=== PATIENT | female | born 1955 | race Caucasian/White ===

== ENCOUNTER 2021-03-07 11:11 | Inpatient (IN) | payer OTHER ==
[~2021-03-07] VITALS: Ht 152.4 cm; Wt 52.8 kg
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
[2021-03-07 11:20] VITALS: BP 115/81
[2021-03-07 11:53] LABS: ABSOLUTE NEUTROPHILS 2.6 thou/uL (1.4-8.2); BASOPHILS 0.7 % (0.0-2.0); EOSINOPHILS 1.6 % (0.0-3.0); HEMATOCRIT 41.2 % (37.0-47.0); HEMOGLOBIN 13.6 gm/dL (12.0-15.0); LYMPHOCYTES 42.1 % (24.0-44.0); MCH 29.2 pg (26.0-34.0); MCV 88.3 fL (80.0-100.0); MONOCYTES 10.6 % (1.0-8.0); PLATELET COUNT 377 thou/uL (150-400); RBC 4.66 mil/uL (4.20-5.00); WBC 5.8 thou/uL (4.0-11.0)
[2021-03-07 11:55] LABS: ANION GAP 10 mmol/L (7-16); BUN 18 mg/dL (7-18); CALCIUM 8.9 mg/dL (8.5-10.1); CHLORIDE 104 mmol/L (98-107); CO2 23 mmol/L (21-32); CREATININE 0.9 mg/dL (0.6-1.0); GLUCOSE 114 mg/dL (74-106); POTASSIUM 4.3 mmol/L (3.5-5.1); SODIUM 137 mmol/L (136-145)
[2021-03-07 12:06] LABS: ALBUMIN 3.8 g/dL (3.4-5.0); SGOT 26 U/L (15-37); SGPT 20 U/L (14-59); TOTAL BILIRUBIN 0.3 mg/dL (0.2-1.0); TOTAL PROTEIN 7.3 g/dL (6.4-8.2)
--- NOTE | 2021-03-07 13:36 | EKG ---
[address] [place] [address] ELECTROCARDIOGRAM REPORT Name: SHASHI IBARRA Room #: REG [facility]#: [id number] Admission: 03/07/21 Attend Phys: Discharge: Date of : 55 Report #: [id number] [facility] ED Test Date: 2021-03-07 Test Time: 11:23:59 Pat Name: SHASHI IBARRA Department: Room: Gender: F Aerospace Project Engineer: DIAN : 1955 Requested By: Emiliano Haider Order Number: [id number] MD: Faheem Maldonado Measurements Intervals [place] Rate: 81 P: 83 TN: 116 QRS: -3 QRSD: 92 T: 60 QT: 483 QTc: 561 Interpretive Statements Sinus rhythm Borderline short TN interval Artifact in lead(s) I,II,III,aVR,aVL,aVF Compared to ECG 08/26/1995 20:11:00 Sinus tachycardia no longer present T-wave abnormality no longer present Electronically Signed On 03-07-2021 13:36:08 CDT by Faheem Maldonado [email or web address] <ELECTRONICALLY SIGNED> By: Faheem Maldonado MD, [facility] 03/07/21 1336 [id number] Faheem Maldonado MD, [facility] /EPI
[2021-03-07 18:11] LABS: URINE BILIRUBIN NEGATIVE (Negative); URINE BLOOD NEGATIVE (Negative); URINE CLARITY CLEAR; URINE COLOR YELLOW; URINE GLUCOSE-RANDOM* NEGATIVE (Negative); URINE KETONES NEGATIVE (Negative); URINE LEUKOCYTES-REFLEX NEGATIVE (Negative); URINE NITRITE-REFLEX NEGATIVE (Negative); URINE PROTEIN (DIPSTICK) NEGATIVE (Negative); URINE SPECIFIC GRAVITY <= 1.005 (1.005-1.035); URINE UROBILINOGEN 0.2 E.U./dl (0.2-1.0)
[2021-03-07 18:20] VITALS: BP 127/66
[2021-03-07 18:40] VITALS: BP 124/78
[2021-03-07 19:29] LABS: APTT 26.2 Seconds (24.5-32.8); INR 0.91
[2021-03-07] MEDS ORDERED: NOHOMEMEDICATIONS (21:37)
--- NOTE | 2021-03-07 21:45 | NUR ---
PATIENT IS A NEW ADMISSION TO THE UNIT THIS SHIFT. SHE WAS IN HER BED WHEN SHIFT STARTED AND THIS NURSE IS FINISHING THE ADMISSION PROCESS. PATIENT IS ALERT AND ORIENTED AND ABLE TO PARTICIPATE FULLY IN ADMISSION. VITAL SIGNS STABLE WITH PATIENTS CHIEF COMPLAINT BEING NAUSEA AND PAIN IN HEADACHE AND LEFT LOWER LEG. NURSE TO COMPLETE ADMISSION AND INITIATE PLAN OF CARE.
[2021-03-07 23:39] VITALS: BP 110/64
[2021-03-08 04:19] VITALS: BP 105/57
[2021-03-08 07:40] VITALS: BP 110/67
[2021-03-08 11:45] VITALS: BP 113/67
[2021-03-08 15:25] VITALS: BP 108/62
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
[2021-03-08 15:53] VITALS: BP 113/67
[2021-03-08] MEDS ORDERED: NORCO5 PO (16:16)
[2021-03-08] MEDS ORDERED: ACETAMINOPHEN325 M1 PO (16:16)
[2021-03-08] MEDS ORDERED: ZOFRAN ODT4 MG DISSOLVE (16:16)
[2021-03-08] MEDS ORDERED: ASA81BEC PO (16:16)
[2021-03-08] MEDS ORDERED: B-1100 MG PO (16:16)
== END 2021-03-08 17:53 | disposition home or self-care (01) | DRG 149 ==
LOC: ER 11:11 → EROBS 17:09 → 2N 17:09
PROVIDERS: Emergency Medicine; Psychiatry & Neurology Neuromuscular Medicine; ADMIT Internal Medicine; ATTEND Internal Medicine
DX: H81.10 Benign paroxysmal vertigo, unspecified ear (principal); F41.9 Anxiety disorder, unspecified; F43.22 Adjustment disorder with anxiety; R20.3 Hyperesthesia; Z86.73 Personal history of transient ischemic attack (TIA), and cerebral infarction without residual deficits; Z86.16 Personal history of COVID-19; Z82.3 Family history of stroke; Z87.828 Personal history of other (healed) physical injury and trauma
CPT/HCPCS: 10081